=== PATIENT | female | born 1955 | race Caucasian/White ===

== ENCOUNTER 2018-04-12 16:26 | Emergency (ER) | payer OTHER ==
[2018-04-12 16:44] VITALS: BMI 26.4
--- NOTE | 2018-04-12 17:39 | C.PDOC ---
History Of Present Illness 62 year old female is sent into the emergency department by her PMD to rule out appendicitis. Patient has been having lower abdominal pain for the last two weeks. She denies fever, nausea, vomiting, blood in the stool or urine. She s tates that she is able to tolerate all PO. Time Seen by Provider: 04/12/18 16:55 Chief Complaint (Nursing): Abdominal Pain History Per: Patient History/Exam Limitations: no limitations Onset/Duration Of Symptoms: Other (two weeks) Current Symptoms Are (Timing): Still Present Location Of Pain/Discomfort: RLQ Associated Symptoms: denies: Fever, Chills, Nausea, Vomiting, Urinary Symptoms, Other (blood in stool) Past Medical History Reviewed: Historical Data, Nursing Documentation, Vital Signs Vital Signs: Last Vital Signs Temp 97.5 F L 04/12/18 16:45 Pulse 68 04/12/18 16:45 Resp 20 04/12/18 16:45 BP 161/91 H 04/12/18 16:45 Pulse Ox 95 04/12/18 16:45 - Medical History PMH: Depression, HTN, Hypothyroidism Surgical History: No Surg Hx Family History: States: Unknown Family Hx - Social History Hx Tobacco Use: No Hx Alcohol Use: No Hx Substance Use: No - Immunization History Hx Tetanus Toxoid Vaccination: No Hx Influenza Vaccination: No Review Of Systems Except As Marked, All Systems Reviewed And Found Negative. Constitutional: Negative for: Fever, Chills Gastrointestinal: Positive for: Abdominal Pain. Negative for: Nausea, Vomiting, Diarrhea, Hematochezia Genitourinary: Negative for: Hematuria Physical Exam - Physical Exam Appears: Non-toxic, No Acute Distress Skin: Warm, Dry Head: Atraumatic, Normacephalic Eye(s): bilateral: Normal Inspection, PERRL, EOMI Oral Mucosa: Moist Neck: Normal, Supple Chest: Symmetrical, No Tenderness Cardiovascular: Rhythm Regular, No Murmur Respiratory: No Rales, No Rhonchi, No Wheezing Gastrointestinal/Abdominal: Soft, No Tenderness, No Guarding, No Rebound Neurological/Psych: Oriented x3, Normal Speech, Normal Cognition ED Course And Treatment - Laboratory Results Result Diagrams: 04/12/18 17:44 04/12/18 17:44 O2 Sat by Pulse Oximetry: 95 (RA) Pulse Ox Interpretation: Normal - CT Scan/US CT Abd/Pelvis Other Rad Studies (CT/US): Read By Radiologist, Radiology Report Reviewed CT/US Interpretation: Name:BRISA RICHTER Exam Date:Apr 12, 2018 6:28:01 PM EST. Modality Type:CT\SR. Description:CT - ABDOMEN AND PELVIS WITH CORONAL AND SAGITTAL MPRS. Gender:F Laterality:Not applicable. :55 Referring Physician:Bridger Lewis (). EXAM: CT Abdomen with IV contrast. CLINICAL HISTORY: RT mid and lower abd pain. TECHNIQUE: Axial computed tomography images of the abdomen and pelvis with intravenous contrast. 0.00 mGy-cm. CONTRAST: With; VISI 100 MLS. COMPARISON: None provided. FINDINGS: LUNG BASES: The lung bases appear clear. No pleural effusions are seen. LIVER: Unremarkable. GALLBLADDER AND BILE DUCTS: The gallbladder has been surgically removed. PANCREAS: Unremarkable. SPLEEN: Un remarkable. ADRENAL GLANDS: Unremarkable. KIDNEYS, URETERS, AND BLADDER: The kidneys appear within normal limits. There is no hydronephrosis or hydroureter. No urinary calculi are seen. Uterus not seen with certainty. STOMACH AND BOWEL: Unremarkable appearance of the stomach and bowel. No evidence of bowel obstruction. No evidence suggesting enteritis or colitis. APPENDIX: No evidence of acute appendicitis on CT examination. PERITONEUM: No free fluid. No free air. LYMPH NODES: No lymphadenopathy is evident. VASCULATURE: No evidence of abdominal aortic aneurysm. BONES: No aggressive appearing osseous lesion. No acute osseous pathology evident. Degenerative changes present lower lumbar spine with chronic disc disease at the L4-L5 and L5-S1 levels. IMPRESSION: Status post cholecystectomy. No definite mass or biliary duct dilatation within the liver. No suspicious mass or lymphadenopathy. Uterus not seen with certainty. Degenerative changes chronic disc disease L4-5 and L5-S1 levels. Clinical correlation advised. Medical Decision Making Medical Decision Making: Plan: CT Abdomen and Pelvis CMP Lipase CBC Urine Culture Urinalysis Progress: 18:[address] scan reviewed with patient and family. Patient admits to slight dysuria. Plan is to d/c home with antibiotic. Follow-up instructions provided. Disposition - Disposition Referrals: [facility], [Non-Staff] - Disposition: HOME/ ROUTINE Disposition Time: 18:35 Condition: GOOD Additional Instructions: BRISA RICHTER, thank you for letting us take care of you today. The emergency medical care you received today was directed at your acute symptoms. If you were prescribed any medication, please fill it and take as directed. It may take several days for your symptoms to resolve. Return to the Emergency Department if your symptoms worsen, do not improve, or if you have any other problems. Please contact your doctor or call one of the physicians/clinics you have been referred to that are listed on the Patient Visit Information form that is included in your discharge packet. Bring any paperwork you were given at discharge with you along with any medications you are taking to your follow up visit. Our treatment cannot replace ongoing medical care by a primary care provider outside of the emergency department. Thank you for allowing the [facility] team to be part of your care today. Follow up with your primary care doctor in 3-5 days for re-evaluation and further management. Prescriptions: Nitrofurantoin Macrocrystals [Macrobid] 100 mg PO BID #10 cap Instructions: Urinary Tract Infection, Adult (DC) Forms: [facility] (Estonian) - Clinical Impression Clinical Impression: UTI (urinary tract infection) - Scribe Statement The provider has reviewed the documentation as recorded by the Jay Hinsonqvi Provider Attestation: All medical record entries made by the Yolyibricardo were at my direction and personally dictated by me. I have reviewed the chart and agree that the record accurately reflects my personal performance of the history, physical exam, medical decision making, and the department course for this patient. I have also personally directed, reviewed, and agree with the discharge instructions and disposition.
[2018-04-12 17:47] LABS: BASO % 0.5 % (0.0-2.0); EOS # 0.1 K/uL (0.0-0.7); EOS % 1.2 % (0.0-4.0); HEMOGLOBIN 13.3 g/dL (11.0-16.0); LYMPH # 1.5 K/uL (1.0-4.3); LYMPH % 29.5 % (20.0-40.0); MEAN CELL VOLUME 88.7 fL (81.0-99.0); MEAN CORPUSCULAR HEMOGLOBIN 29.9 pg (27.0-31.0); MEAN CORPUSCULAR HGB CONC 33.7 g/dL (33.0-37.0); MEAN PLATELET VOLUME 7.9 fL (7.2-11.7); MONO # 0.3 K/uL (0.0-0.8); MONO % 5.8 % (0.0-10.0); NEUT # 3.2 K/uL (1.8-7.0); RBC 4.43 Mil/uL (3.80-5.20); RED CELL DISTRIBUTION WIDTH 13.6 % (11.5-14.5)
[2018-04-12 18:02] LABS: ALB/GLOB RATIO 1.2 (1.0-2.1); ALBUMIN 4.5 g/dL (3.5-5.0); ALT/SGPT 29 U/L (9-52); AST/SGOT 34 U/L (14-36); BLOOD UREA NITROGEN 23 mg/dL (7-17); CALCIUM 9.2 mg/dl (8.6-10.4); GFR NON-AFRICAN AMERICAN 56; LIPASE 63 U/L (23-300)
[2018-04-12 18:12] LABS: SQUAMOUS EPITHIAL < 1 /hpf (0-5); URINE BACTERIA FEW (<OCC); URINE BILIRUBIN NEGATIVE (NEGATIVE); URINE BLOOD NEGATIVE (NEGATIVE); URINE CLARITY Clear (Clear); URINE COLOR Yellow (YELLOW); URINE GLUCOSE (UA) NORMAL (Normal); URINE LEUKOCYTE ESTERASE TRACE Leu/uL (Negative); URINE PROTEIN NEGATIVE (NEGATIVE)
[2018-04-12] MEDS ORDERED: Iodixanol 320 MG/ML 100 ML BOTTLE IV ONE (18:22)
[2018-04-12 19:16] VITALS: BP 130/75; PULSE 60; RESP 18; TEMP 98.7
[2018-04-12 20:26] VITALS: O2SAT 95
--- NOTE | 2018-04-12 20:53 | CT ---
CT abdomen and pelvis HISTORY: Abdominal pain. COMPARISON: None available. Technique: Multiple contiguous axial images were performed through the abdomen and pelvis with the use of intravenous contrast. Subsequently, sagittal and coronal reformatted images were obtained. This CT exam was performed using one or more of the following dose reduction techniques: Automated exposure control, adjustment of the mA and/or kV according to patient size, and/or use of iterative reconstruction technique. Findings: Mild atelectasis at the lung bases. No pleural or pericardial effusion. Mild intrahepatic biliary ductal dilatation. Prior cholecystectomy. Postsurgical prominence of the common bile duct measuring up to 1.2 centimeters. Spleen is preserved. Adrenal glands are preserved. Pancreas is preserved. Upper abdominal bowel is preserved. Right kidney: No calculi or hydronephrosis. Left Kidney: No calculi or hydronephrosis. Urinary bladder is preserved. Prior hysterectomy. Underdistended and or mildly thickened distal descending and sigmoid colon. Clinical correlation. Fecal retention in the right hemicolon. Appendix partially visualized, at the upper limits of normal measuring approximately 6.4 millimeters in width. Clinical correlation. Small fat containing left inguinal hernia. Few shotty para-aortic and mesenteric lymph nodes. Degenerative changes in the spine. Subcutaneous calcified granulomas in the posterior buttock regions. Bone island in the L2 vertebral body. Probable vertebral body hemangioma in the T10 vertebral body. Impression: Mild intrahepatic biliary ductal dilatation. Prior cholecystectomy. Postsurgical prominence of the common bile duct measuring up to 1.2 centimeters. Underdistended and or mildly thickened distal descending and sigmoid colon. Clinical correlation. Fecal retention in the right hemicolon. Appendix partially visualized, at the upper limits of normal, measuring approximately 6.8 millimeters in width. Clinical correlation. Small fat containing left inguinal hernia. A preliminary report was generated at 6:54 p.m. on 04/12/[address] Tonio Mcdonald from [facility].
== END 2018-04-12 19:30 | disposition home or self-care (01) ==
LOC: C.ER 16:26
DX: N39.0 Urinary tract infection, site not specified (principal)
CPT/HCPCS: 74177; 80053; 81001; 83690; 85025; 87086; 87181; 99285; Q9967